=== PATIENT | female | born 1955 | race Caucasian/White ===

== ENCOUNTER 2023-09-18 18:19 | Inpatient (IN) | payer MEDICARE ==
[2023-09-18 18:48] LABS: #Basophils 0.1 10x3/uL (0.0-0.2); #Monocytes 0.6 10x3/uL (0.0-1.1); #Neutrophils 8.8 10x3/uL (1.5-8.4); %Basophils 0.5 % (0.0-2.0); %Eosinophils 0.1 % (0.0-6.0); %Lymphocytes 17.3 % (18.0-47.0); %Monocytes 4.9 % (0.0-10.0); %Neutrophils 76.8 % (40.0-75.0); Hematocrit 42.6 % (34.9-44.5); Hemoglobin 14.4 g/dL (12.0-15.5); Mean Corpuscular HGB CONC 33.8 g/dL (32.0-36.0); Mean Corpuscular Hemoglobin 29.4 pg (27.0-33.0); Mean Corpuscular Volume 86.9 fl (81.6-98.3); Mean Platelet Volume 10.3 fl (7.4-10.4); Platelet Count 293 10x3/uL (150-450); RBC Distribution Width 13.4 % (11.5-14.5); White Blood Cell (WBC) Count 11.4 10x3/uL (3.5-10.5)
[2023-09-18] MEDS ORDERED: dilTIAZem 25 MG/5 ML VIAL ONE (18:55)
[2023-09-18 19:01] LABS: ALT (SGPT) 13 U/L (8-55); AST (SGOT) 22 U/L (5-34); Albumin 4.5 g/dL (3.4-4.8); Alkaline Phosphatase 101 U/L (40-110); Anion Gap 20 mmol/L (10-20); BUN (Urea Nitrogen) 19 mg/dL (9.8-20.1); Bilirubin, Total 0.6 mg/dL (0.2-1.2); Calc. Creatinine Clearance 0 mL/min (70-130); Calcium 9.7 mg/dL (7.8-10.44); Carbon Dioxide 17 mmol/L (23-31); Chloride 104 mmol/L (98-107); Estimated GFR 64; Globulin 2.6 g/dL (2.4-3.5); Glucose 104 mg/dL (80-115); Lipase 32 U/L (8-78); Potassium 4.2 mmol/L (3.5-5.1); Protein, Total 7.1 g/dL (5.8-8.1); Sodium 137 mmol/L (136-145)
[2023-09-18 19:03] LABS: Troponin I Less than 0.010 ng/mL (< 0.028)
[2023-09-18] MEDS ORDERED: dilTIAZem 60 MG TAB PO SCH (19:30)
[2023-09-18] MEDS ORDERED: dilTIAZem 125 MG/25 ML SDV ONE (20:38)
[2023-09-18] MEDS ORDERED: Acetaminophen 325 MG TAB PO PRN (21:35)
[2023-09-18] MEDS ORDERED: Senokot S 8.6-50 MG TAB PO PRN (21:35)
[2023-09-18] MEDS ORDERED: dilTIAZem 125 MG in Sodium Chloride 0.9% 100 ML IVPB SCH (21:45)
[2023-09-18 22:02] LABS: PTT 28.5 sec (22.0-33.0)
[2023-09-18 22:33] LABS: Cholesterol 236 mg/dl (< 200 Desired); HDL Cholesterol 78 mg/dL (>60 Neg Risk); LDL Cholesterol, Calculated 146 mg/dL; Magnesium 1.9 mg/dL (1.6-2.6); Triglycerides 62 mg/dL (Less than 150)
[2023-09-18 22:46] LABS: Troponin I Less than 0.010 ng/mL (< 0.028)
[2023-09-18 23:03] VITALS: BMI 26.2
[2023-09-19 02:27] LABS: Troponin I Less than 0.010 ng/mL (< 0.028)
[2023-09-19 03:36] LABS: #Basophils 0.1 10x3/uL (0.0-0.2); #Eosinphils 0.1 10x3/uL (0.0-0.5); #Monocytes 0.6 10x3/uL (0.0-1.1); %Basophils 0.8 % (0.0-2.0); %Eosinophils 0.6 % (0.0-6.0); %Lymphocytes 35.3 % (18.0-47.0); %Monocytes 6.8 % (0.0-10.0); %Neutrophils 56.2 % (40.0-75.0); Hematocrit 38.4 % (34.9-44.5); Hemoglobin 12.5 g/dL (12.0-15.5); Mean Corpuscular HGB CONC 32.6 g/dL (32.0-36.0); Mean Corpuscular Hemoglobin 28.6 pg (27.0-33.0); Mean Corpuscular Volume 87.9 fl (81.6-98.3); Mean Platelet Volume 10.7 fl (7.4-10.4); Platelet Count 272 10x3/uL (150-450); RBC Distribution Width 13.6 % (11.5-14.5); Red Blood Cell (RBC) Count 4.37 10x6/uL (3.90-5.03); White Blood Cell (WBC) Count 8.8 10x3/uL (3.5-10.5)
[2023-09-19 03:50] LABS: Anion Gap 19 mmol/L (10-20); BUN (Urea Nitrogen) 15 mg/dL (9.8-20.1); Calc. Creatinine Clearance 80 mL/min (70-130); Carbon Dioxide 16 mmol/L (23-31); Chloride 110 mmol/L (98-107); Estimated GFR 83; Glucose 70 mg/dL (80-115); Potassium 3.9 mmol/L (3.5-5.1); Sodium 141 mmol/L (136-145)
[2023-09-19] MEDS ORDERED: FLU VACC QS2023(65UP)/MF59C/PF 60 MCG/0.5 ML SYRINGE IM ONE (09:00)
[2023-09-19] MEDS ORDERED: dilTIAZem CD 240 MG CAP PO SCH (17:00)
[2023-09-19] MEDS: Dronedarone HCl 400 MG TAB PO SCH (17:26)
[2023-09-19] MEDS: Apixaban 5 MG TAB PO SCH (20:51)
[2023-09-20] MEDS ORDERED: dilTIAZem CD 240 MG CAP PO SCH (09:00)
[2023-09-20] MEDS: Dronedarone HCl 400 MG TAB PO SCH (09:01)
[2023-09-20] MEDS: Apixaban 5 MG TAB PO SCH (09:01)
[2023-09-20 10:05] VITALS: BP 102/62; TEMP 97.6
== END 2023-09-20 10:48 | disposition home or self-care (01) | DRG 310 ==
LOC: CSHERS 18:19 → CSHTELE 19:11
PROVIDERS: ADMIT Family Medicine; ATTEND Internal Medicine
DX: I48.0 Paroxysmal atrial fibrillation (principal); E78.5 Hyperlipidemia, unspecified; Z98.890 Other specified postprocedural states; Z88.5 Allergy status to narcotic agent; Z79.01 Long term (current) use of anticoagulants
CPT/HCPCS: 36415; 71045; 80048; 80053; 80061; 83690; 83735; 84443; 84484; 85025; 85610; 85730; 93005; 93010; 93306; 96361; 96365; 96366; 96376; J1650